=== PATIENT | female | born 1955 | race Caucasian/White ===

== ENCOUNTER → 2016-03-23 | Outpatient (CLI) | payer BC ==
[2016-03-23 11:07] LABS: BASO % 0.6 %; BASO ABS # 0.04 K/uL (0-0.2); COMPLETE YES; EOS % 6.7 %; HEMATOCRIT 36.4 % (37-47); IG% 0.2 %; LYMPH % 36.1 %; LYMPH ABS # 2.27 K/uL (1.2-3.4); MEAN CELL VOLUME 88.3 fL (80-100); MEAN CORPUSCULAR HEMOGLOBIN 30.3 pg (25-34); MEAN CORPUSCULAR HGB CONC 34.3 g/dl (32-36); MEAN PLATELET VOLUME 9.9 fL (7.4-10.4); MONO % 6.5 %; NEUT % 49.9 %; PLATELET COUNT 265 K/uL (130-400); RED BLOOD COUNT 4.12 M/uL (4.2-5.4); WHITE BLOOD COUNT 6.28 K/uL (4.8-10.8)
[2016-03-23 12:10] LABS: ALT/SGPT 22 U/L (12-78); AST/SGOT 15 U/L (15-37); BLOOD UREA NITROGEN 10 mg/dl (7-18); BUN/CREATININE RATIO 16.1 (10-20); CALCIUM 8.9 mg/dl (8.5-10.1); CARBON DIOXIDE 28 mmol/L (21-32); CHLORIDE 105 mmol/L (98-107); CREATININE 0.64 mg/dl (0.60-1.20); GLUCOSE 86 mg/dl (70-99); POTASSIUM 3.9 mmol/L (3.5-5.1); SODIUM 141 mmol/L (136-145)
[2016-03-23 12:19] LABS: ALB/GLOB RATIO 1.2 (0.9-2); ALKALINE PHOSPHATASE 92 U/L (45-117); CHOLESTEROL 179 mg/dl (0-200); CHOLESTEROL/HDL RATIO 2.6; HDL CHOLESTEROL 69 mg/dl; LDL CHOLESTEROL CALCULATED 91 mg/dl; TRIGLYCERIDES 96 mg/dl (0-150); VERY LOW DENSITY LIPOPROT CALC 19 mg/dl
== END | disposition home or self-care (01) ==
LOC: C.LABBC 08:00
PROVIDERS: ATTEND Internal Medicine
DX: E78.5 Hyperlipidemia, unspecified (principal)

== ENCOUNTER → 2017-02-05 | Outpatient (CLI) | payer BC ==
--- NOTE | 2017-02-05 08:56 | DIAGNOSTIC IMAGING REPORT ---
CHEST 2 VIEWS ROUTINE HISTORY: 61 years-old Female R63.4 Weight lossR53.83 [id number] acute weight loss COMPARISON: None available TECHNIQUE: PA and lateral views of the chest FINDINGS: Cardiomediastinal and hilar silhouettes are within normal limits. Mild biapical pleural-parenchymal scarring. No pneumothorax, pleural effusion or overt pulmonary edema. Ill-defined nodular opacities of the lung bases are present suggesting nipple shadows. There is a linear subsegmental 3.2 cm peripheral opacity of the lateral left midlung. Suggested small hiatal hernia. There are degenerative changes of the shoulders and spine. Surgical clips of the upper abdomen suggest prior cholecystectomy. Multilevel endplate spurring of the spine. IMPRESSION: 1. Subsegmental linear 3.2 cm opacity of the lateral left midlung suggest area of pleural-parenchymal scarring. 2. No lobar airspace consolidation to suggest pneumonia. The above report was generated using voice recognition software. It may contain grammatical, syntax or spelling errors. Electronically signed by: Jaime Little M.D. 02/05/2017 8:55 AM Dictated Date/Time: 02/05/2017 8:52 AM
[2017-02-05 09:38] LABS: BASO % 0.4 %; BASO ABS # 0.03 K/uL (0-0.2); COMPLETE YES; EOS % 3.6 %; HEMATOCRIT 33.4 % (37-47); IG% 0.1 %; LYMPH % 24.8 %; LYMPH ABS # 2.01 K/uL (1.2-3.4); MEAN CELL VOLUME 89.3 fL (80-100); MEAN CORPUSCULAR HEMOGLOBIN 29.4 pg (25-34); MEAN CORPUSCULAR HGB CONC 32.9 g/dl (32-36); MEAN PLATELET VOLUME 9.1 fL (7.4-10.4); MONO % 7.5 %; NEUT % 63.6 %; PLATELET COUNT 490 K/uL (130-400); RED BLOOD COUNT 3.74 M/uL (4.2-5.4); WHITE BLOOD COUNT 8.12 K/uL (4.8-10.8)
[2017-02-05 09:57] LABS: ALB/GLOB RATIO 0.8 (0.9-2); ALKALINE PHOSPHATASE 114 U/L (45-117); ALT/SGPT 23 U/L (12-78); AST/SGOT 15 U/L (15-37); BLOOD UREA NITROGEN 8 mg/dl (7-18); BUN/CREATININE RATIO 18.4 (10-20); CARBON DIOXIDE 28 mmol/L (21-32); CHLORIDE 101 mmol/L (98-107); CREATININE 0.46 mg/dl (0.60-1.20); GLUCOSE 81 mg/dl (70-99); POTASSIUM 4.1 mmol/L (3.5-5.1); SODIUM 134 mmol/L (136-145)
[2017-02-05 10:06] LABS: LYME DISEASE AB IGG NEG (NEG)
[2017-02-05 10:07] LABS: LYME DISEASE AB IGM NEG (NEG)
== END | disposition home or self-care (01) ==
LOC: C.RAD1850 08:03
PROVIDERS: ATTEND Physician Assistant
DX: R63.4 Abnormal weight loss (principal); R53.83 Other fatigue

== ENCOUNTER → 2017-02-09 | Outpatient (CLI) | payer BC ==
[2017-02-09 13:52] LABS: FERRITIN 60.9 ng/ml (8.0-388.0)
== END | disposition home or self-care (01) ==
LOC: C.LABBC 09:56
PROVIDERS: ATTEND Physician Assistant
DX: D64.9 Anemia, unspecified (principal)

== ENCOUNTER → 2017-02-10 | Outpatient (CLI) | payer BC | END | disposition home or self-care (01) | LOC: C.LABBC 09:21 | PROVIDERS: ATTEND Internal Medicine | DX: R63.4 Abnormal weight loss (principal); R53.83 Other fatigue; D64.9 Anemia, unspecified; I10 Essential (primary) hypertension; E78.5 Hyperlipidemia, unspecified ==

== ENCOUNTER → 2017-02-12 | Outpatient (CLI) | payer BC ==
--- NOTE | 2017-02-12 13:16 | DIAGNOSTIC IMAGING REPORT ---
CT OF THE CHEST WITHOUT IV CONTRAST CLINICAL HISTORY: Abnormal chest radiograph. COMPARISON STUDY: Chest radiograph February 05, 2017. CT DOSE: 189.56 mGy.cm TECHNIQUE: Axial images of the chest were obtained without IV contrast. Images were reviewed in the axial, sagittal, and coronal planes. IV contrast was not administered for this examination. A dose lowering technique was utilized adhering to the principles of ALARA. FINDINGS: No enlarged axillary, mediastinal or hilar lymph nodes are present. The size of the heart is normal. There is no pericardial effusion. There is a moderate sized hiatal hernia. Central airways are patent. There is no pneumothorax or pleural effusion. Note is made of a 2.7 x 1.4 cm irregular subpleural opacity within the left upper lobe shown on image 122 of 286. There has mild adjacent groundglass opacity. There are also nodular airspace opacities within the right middle lobe and lingula with minimal associated groundglass opacity. There is no cavitation. Bony thorax is unremarkable. Multiple water attenuation hepatic lesions are suboptimally assessed on this exam but likely reflect cysts. There is an intermediate attenuation 2.6 cm left hepatic lobe lesion. There is a 1.1 cm intermediate attenuation segment 5 liver lesion as well. The gallbladder is surgically absent. A splenule is noted. IMPRESSION: 1. Multifocal airspace opacities within the lungs, including a 2.7 x 1.4 cm left upper lobe focus. This corresponds to the abnormality on prior chest radiograph. The findings favor mild multifocal pneumonia. A follow-up chest CT in 2 months to ensure resolution is recommended. 2. Several intermediate attenuation hepatic lesions, the largest of which is a 2.6 cm left hepatic lobe lesion. Although these could reflect hemangiomas, these are indeterminate and nonemergent MRI of the liver is recommended. 3. Moderate sized hiatal hernia. Electronically signed by: Rehan Wilcox M.D. 02/12/2017 1:14 PM Dictated Date/Time: 02/12/2017 12:20 PM
== END | disposition home or self-care (01) ==
LOC: C.CTS 11:49
PROVIDERS: ATTEND Physician Assistant
DX: R93.8 Abnormal findings on diagnostic imaging of other specified body structures (principal); K44.9 Diaphragmatic hernia without obstruction or gangrene

== ENCOUNTER → 2017-02-18 | Outpatient (CLI) | payer BC ==
--- NOTE | 2017-02-18 12:40 | DIAGNOSTIC IMAGING REPORT ---
ABDOMEN AND PELVIS CT WITH ORAL CONTRAST CT DOSE: 316.48 mGy.cm HISTORY: R63.4 Weight lossR53.83 AlxetfbM65.9 Anemia TECHNIQUE: Multiaxial CT images of the abdomen and pelvis were performed following the use of oral contrast. A dose lowering technique was utilized adhering to the principles of ALARA. COMPARISON STUDY: Chest CT 02/12/2017. FINDINGS: Small airspace opacities within the right middle lobe and lingula have slightly improved. No pneumoperitoneum. No pneumatosis. There is again noted a moderate hiatus hernia. However, there appears be abnormal thickening along the left side of the hernia and extending into the cardia. This is concerning for a gastric esophageal mass. There is again noted a 2.7 cm hypodense lesion within the left hepatic dome which does not represent a simple cyst. A few additional hypodense lesions scattered throughout the liver are incompletely characterize on this noncontrast study but are lower in density and therefore favor cysts. Cholecystectomy. The unenhanced spleen, adrenal glands, pancreas are unremarkable. An 11 mm hypodense lesion within the left kidney is also incomplete characterize on this noncontrast study. Mild fullness within the right renal collecting system without arcadio hydronephrosis. No renal or ureteral calculi identified. Normal bladder. No retroperitoneal lymphadenopathy. Tiny fat-containing umbilical hernia. Focal calcification within the right ovary. The uterus and left ovary are unremarkable. Normal bladder. No evidence for bowel obstruction. Colonic diverticulosis. IMPRESSION: 1. Moderate hiatus hernia. This hernia demonstrates an abnormally thickened wall which extends into the gastric cardia. Therefore, this is suspicious for a gastroesophageal mass. Follow-up endoscopy is recommended for further evaluation. 2. There is also an indeterminate 2.7 cm hypodense lesion within the left hepatic dome which does not represent a simple cyst. Follow-up contrast-enhanced MRI should be performed to exclude the possibility of a metastatic focus. 3. Slight improvement in the bibasilar airspace opacities consistent with a resolving pneumonia. 4. Mild fullness within the right renal collecting system without arcdaio hydronephrosis. No renal or ureteral calculi identified. 5. Colonic diverticulosis. 6. These findings were called to the referring physician's office following dictation. Electronically signed by: Yanick Andrade M.D. 02/18/2017 12:39 PM Dictated Date/Time: 02/18/2017 12:25 PM
== END | disposition home or self-care (01) ==
LOC: C.CTS 11:40
PROVIDERS: ATTEND Internal Medicine
DX: D64.9 Anemia, unspecified (principal); R53.83 Other fatigue; R63.4 Abnormal weight loss; J18.9 Pneumonia, unspecified organism; K44.9 Diaphragmatic hernia without obstruction or gangrene; K76.9 Liver disease, unspecified; K57.30 Diverticulosis of large intestine without perforation or abscess without bleeding

== ENCOUNTER → 2017-02-26 | Outpatient (CLI) | payer BC ==
[~2017-02-26] MED LIST: GADAVIST IV PRN
--- NOTE | 2017-02-26 13:48 | DIAGNOSTIC IMAGING REPORT ---
LIVER COMBO CLINICAL HISTORY: 61 years-old Female presenting with K76.89 Liver lesion, left lobesee CT scan done 02/18. Indeterminate liver lesion in the left hepatic dome, concern for metastatic focus. TECHNIQUE: Multisequence, multiplanar MR imaging of the abdomen was performed before and after the administration of intravenous contrast. IV contrast: 10 mL of Eovist. COMPARISON: CT from 02/18/2017. FINDINGS: Localizer images: Unremarkable. Lung bases: Lungs and pleural spaces clear. Normal heart size. No pericardial or pleural effusion. Liver: Normal morphology. Focal round 2.4 cm intrinsically T1 hyperintense, mildly T2 hyperintense intense lesion in the segment 2/4A. This lesion does not demonstrate measurable enhancement on subtracted postcontrast imaging and does not retain contrast on hepatobiliary specific phase. This lesion does not contain fat. Several mildly T2 hyperintense enhancing lesions suggestive of hemangiomas. Multiple additional well-defined T2 hyperintense nonenhancing lesions consistent with hepatic cysts or hamartomas. Hepatic fat fraction is 0.4%, which is normal. Patent hepatic vasculature. Biliary: Mild biliary ductal prominence likely a reservoir effect in the post cholecystectomy state. Conventional intrahepatic biliary bifurcation. Gallbladder surgically absent. Pancreas: Pancreas divisum. Spleen: Normal. Adrenal glands: Normal. Kidneys and ureters: Well-defined T2 hyperintense nonenhancing lesion in the left kidney consistent with simple cyst. No hydronephrosis. Bowel: Small hiatal hernia. Bowel otherwise normal. No bowel obstruction. Peritoneal cavity: No free fluid or intraperitoneal gas. Lymph nodes: No enlarged lymph nodes in the abdomen. Vasculature: Aorta and IVC patent and normal in caliber. Abdominal wall: Normal. Musculoskeletal: Normal. IMPRESSION: 1. 2.4 cm lesion in the left hepatic lobe. This is suboptimally evaluated with a hepatocellular specific contrast agent. Further evaluation with Gadavist, an extracellular contrast agent is recommended for more thorough evaluation. Intrinsic T1 hyperintensity of the lesion is unique and can be seen in the setting of an adenoma, dysplastic nodule, hematoma, proteinaceous material, or melanoma metastasis. The lack of apparent enhancement favors a benign etiology. This should be followed. Electronically signed by: Orion Sousa M.D. 02/26/2017 1:47 PM Dictated Date/Time: 02/26/2017 1:26 PM
== END | disposition home or self-care (01) ==
LOC: C.MRIBC 12:03
PROVIDERS: ATTEND Family Medicine Adult Medicine
DX: K76.89 Other specified diseases of liver (principal)

== ENCOUNTER → 2017-03-03 | Outpatient (CLI) | payer BC ==
--- NOTE | 2017-03-03 12:23 | DIAGNOSTIC IMAGING REPORT ---
LIVER MRI HISTORY: K76.89 Liver lesion, left lobePer prior MRI report: "2.4 cm lesi TECHNIQUE: Multiplanar multisequence MRI of the liver was performed both before and after the intravenous ministration of 6 cc of Gadavist contrast. COMPARISON STUDY: Liver MRI 02/26/2017. FINDINGS: There is again noted a round 2.4 cm T1 hyperintense, T2 iso to hypointense lesion within the left hepatic lobe. This does not demonstrate definite enhancement on the subtraction postcontrast images. Out of phase imaging does not demonstrate microscopic fat within the lesion. No associated restricted diffusion within this lesion. Multiple additional scattered hepatic cysts are again noted. There is a 1 cm cyst within the left kidney. The right kidney, pancreas, spleen, and adrenal glands are unremarkable. Prior cholecystectomy. Mild thickening at the gastroesophageal junction has improved. A hiatus hernia is partially visualized. IMPRESSION: 1. No change in the 2.4 cm T1 hyperintense lesion within the left hepatic lobe. This does not demonstrate definite enhancement. Therefore, this favors a proteinaceous/hemorrhagic cyst. An additional 6 month MRI follow-up is recommended to ensure stability and ensure the less likely possibility of a hepatic mass. 2. Additional scattered hepatic cysts. 3. Mild thickening at the gastroesophageal junction has improved. 4. The hiatus hernia is only partially visualized. Electronically signed by: Yanick Andrade M.D. 03/03/2017 12:21 PM Dictated Date/Time: 03/03/2017 12:07 PM
== END | disposition home or self-care (01) ==
LOC: C.MRI 10:47
PROVIDERS: ATTEND Family Medicine Adult Medicine
DX: K76.89 Other specified diseases of liver (principal)

== ENCOUNTER → 2017-03-04 | Outpatient (CLI) | payer BC ==
--- NOTE | 2017-03-04 09:39 | DIAGNOSTIC IMAGING REPORT ---
TWO VIEW CHEST CLINICAL HISTORY: Liver lesion. FINDINGS: PA and lateral chest radiographs are compared to study dated 02/05/2017 and correlated with chest CT dated 02/12/2017. The cardiomediastinal silhouette is unremarkable. There is mild atherosclerotic calcification of the thoracic aorta. Chronic interstitial thickening is unchanged. Linear atelectasis versus scarring is present in the left upper lobe. This has decreased in size from 02/05/2017. No airspace consolidation is seen typical for pneumonia and there is no pleural effusion. There is no pneumothorax. The skeletal structures are osteopenic. The bony thorax appears intact. Degenerative change is noted in the thoracic spine. Cholecystectomy clips are noted. IMPRESSION: 1. Linear atelectasis versus scarring is seen in the left upper lung. This has decreased in size from 02/05/2017. Precautionary CT follow-up in an additional 1-2 months is recommended for reassessment. 2. There is no airspace consolidation typical for pneumonia or pleural effusion. Electronically signed by: Francois Jacobs M.D. 03/04/2017 9:38 AM Dictated Date/Time: 03/04/2017 9:32 AM
== END | disposition home or self-care (01) ==
LOC: C.RADBC 09:22
PROVIDERS: ATTEND Internal Medicine
DX: K76.89 Other specified diseases of liver (principal)

== ENCOUNTER → 2017-03-29 | Outpatient (CLI) | payer BC ==
--- NOTE | 2017-03-29 12:09 | DIAGNOSTIC IMAGING REPORT ---
(CHEST) THORAX WITHOUT CT DOSE: 184.26 mGy.cm HISTORY: Pneumonia J18.9 Pneumonia6 WEEK F/U FOR [id number] TECHNIQUE: Multiaxial CT images of the chest were performed without contrast. A dose lowering technique was utilized adhering to the principles of ALARA. COMPARISON: 02/12/2017 FINDINGS: Mildly improved exam. The parenchymal infiltrate left upper lobe anterior to the left major fissure is similar in overall geographic extent is considerably diminished in overall density. The additional micronodules throughout both hemithoraces are stable. No evidence for new interval or progressive process. Minimal atelectatic change of the lingula is stable. No significant mediastinal or hilar adenopathy The appearance liver is unaltered. Prior cholecystectomy. IMPRESSION: 1. Mildly improved exam with the parenchymal infiltrative process primarily in the left upper lobe region moderately improved. 2. Residual infiltrative change as well as subtle micronodularity bilaterally 3. A six-month follow-up CT study is suggested. The above report was generated using voice recognition software. It may contain grammatical, syntax or spelling errors. Electronically signed by: Peyman Alcocer M.D. 03/29/2017 12:08 PM Dictated Date/Time: 03/29/2017 12:02 PM
== END | disposition home or self-care (01) ==
LOC: C.CTS 11:35
PROVIDERS: ATTEND Physician Assistant
DX: J18.9 Pneumonia, unspecified organism (principal); R91.8 Other nonspecific abnormal finding of lung field

== ENCOUNTER → 2017-04-20 | Outpatient (CLI) | payer BC ==
[2017-04-20 17:06] LABS: BASO % 0.6 %; BASO ABS # 0.05 K/uL (0-0.2); EOS % 9.9 %; EOS ABS # 0.83 K/uL (0-0.5); HEMATOCRIT 36.6 % (37-47); HEMOGLOBIN 12.3 g/dL (12.0-16.0); IG# 0.02 K/uL (0.00-0.02); LYMPH % 34.5 %; LYMPH ABS # 2.89 K/uL (1.2-3.4); MEAN CELL VOLUME 88.2 fL (80-100); MEAN CORPUSCULAR HEMOGLOBIN 29.6 pg (25-34); MEAN CORPUSCULAR HGB CONC 33.6 g/dl (32-36); MEAN PLATELET VOLUME 9.6 fL (7.4-10.4); NEUT % 48.8 %; NEUT ABS # 4.09 K/uL (1.4-6.5); PLATELET COUNT 292 K/uL (130-400); RED CELL DISTRIBUTION WIDTH CV 13.7 % (11.5-14.5); RED CELL DISTRIBUTION WIDTH SD 44.2 fL (36.4-46.3); WHITE BLOOD COUNT 8.38 K/uL (4.8-10.8)
== END | disposition home or self-care (01) ==
LOC: C.LABBC 12:44
PROVIDERS: ATTEND Internal Medicine
DX: D64.9 Anemia, unspecified (principal)

== ENCOUNTER → 2017-07-09 | Outpatient (CLI) | payer BC ==
[2017-07-09 14:02] LABS: BLOOD UREA NITROGEN 13 mg/dl (7-18); CREATININE 0.56 mg/dl (0.60-1.20)
== END | disposition home or self-care (01) ==
LOC: C.LABBC 11:38
PROVIDERS: ATTEND Family Medicine Adult Medicine
DX: Z00.00 Encounter for general adult medical examination without abnormal findings (principal)

== ENCOUNTER → 2017-07-12 | Outpatient (CLI) | payer BC ==
--- NOTE | 2017-07-12 09:57 | DIAGNOSTIC IMAGING REPORT ---
MRI OF THE ABDOMEN COMBO CLINICAL HISTORY: Follow-up liver lesion. COMPARISON STUDY: MRI of the liver dated 03/03/2017. Abdominal CT dated 02/10/2017. TECHNIQUE: MRI of the abdomen is performed transverse T1 and T2-weighted sequences in the axial and coronal planes. Contrast enhanced sequences were acquired following the IV administration of 6 cc of Gadavist. Diffusion weighted sequences and subtraction imaging were utilized. MRCP images are created and assessed with 3-D reformats. FINDINGS: Lower chest: No pleural effusion is identified. The heart is normal in size. A moderate hiatal hernia is observed. Liver: The liver is normal in size, contour, and signal intensity. No intrahepatic biliary ductal dilatation is seen. The hepatic veins and portal veins are patent. There is unchanged appearance of a 2.4 cm T1 hyperintense, T2 isointense lesion in the left hepatic lobe. This is seen on axial postcontrast image #32 of 112. There is no abnormal enhancement within this lesion. No enhancing hepatic lesion is identified. There are numerous small simple cysts which measure up to 1.4 cm. Gallbladder and MRCP: The gallbladder is surgically absent. There is no intrahepatic biliary ductal dilatation. The common bile duct measures up to 1.0 cm. There are no filling defects identified to suggest choledocholithiasis. Pancreas divisum is incidentally noted. Spleen: Normal in size and signal intensity. Pancreas: Unremarkable. Adrenal glands: Unremarkable. Kidneys: The kidneys are normal in size and without hydronephrosis. The kidneys enhance and excrete symmetrically. A 12 mm cyst is seen in the lower pole of the left kidney. Abdominal aorta: Normal in course and caliber. Bowel: Visualized portions of the small bowel and colon show no evidence of obstruction. Peritoneum: There is no abdominal ascites. There is a fat-containing umbilical hernia. Lymphadenopathy: None. Skeletal structures: Visualized skeletal structures times are normal marrow signal intensity. IMPRESSION: 1. There is unchanged appearance of a 2.4 cm lesion in the left hepatic lobe. No enhancement is identified within this lesion and the signal characteristics remains most typical for a complex/hemorrhagic cyst. An additional follow-up examination in one years time is recommended. 2. Additional simple hepatic cysts are also unchanged. 3. No enhancing hepatic lesion is seen. 4. Moderate hiatal hernia. 5. Pancreas divisum is incidentally noted. 6. Additional findings as above. Electronically signed by: Francois Jacobs M.D. 07/12/2017 9:56 AM Dictated Date/Time: 07/12/2017 9:36 AM
== END | disposition home or self-care (01) ==
LOC: C.MRIBC 07:47
PROVIDERS: ATTEND Family Medicine Adult Medicine
DX: K76.89 Other specified diseases of liver (principal); K44.9 Diaphragmatic hernia without obstruction or gangrene

== ENCOUNTER 2023-05-06 05:11 | Observation (INO) ==
--- NOTE | 2023-04-19 10:25 | PAT Medication Instructions ---
Medication Instructions Date of Service April 19, 2023 Home Medications magnesium oxide 500 mg capsule 500 mg PO QAM vitamin B complex 1 tab PO DAILY cetirizine 10 mg capsule (Zyrtec) 10 mg PO QAM cholecalciferol (vitamin D3) 50 mcg (2,000 unit) capsule 2,000 units PO QAM desvenlafaxine succinate 100 mg tablet,extended release 24 hr (Pristiq) 100 mg PO QPM famotidine 20 mg tablet 20 mg PO BID latanoprost 0.005 % eye drops 1 drp ophthalmic (eye) HS losartan 100 mg tablet 100 mg PO QPM sumatriptan succinate 100 mg tablet 100 mg PO QAM PRN Continue as directed sumatriptan succinate 100 mg tablet 100 mg PO QAM PRN(if needed) DO NOT take the morning of surgery magnesium oxide 500 mg capsule 500 mg PO QAM vitamin B complex 1 tab PO DAILY cetirizine 10 mg capsule (Zyrtec) 10 mg PO QAM cholecalciferol (vitamin D3) 50 mcg (2,000 unit) capsule 2,000 units PO QAM Take morning of surgery With a small sip of water, OTHERWISE NOTHING TO EAT OR DRINK AFTER MIDNIGHT: famotidine 20 mg tablet 20 mg PO BID Take evening before surgery desvenlafaxine succinate 100 mg tablet,extended release 24 hr (Pristiq) 100 mg PO QPM famotidine 20 mg tablet 20 mg PO BID latanoprost 0.005 % eye drops 1 drp ophthalmic (eye) HS losartan 100 mg tablet 100 mg PO QPM Other Notes If you have any questions please call us at [phone] or [phone] or [phone] or [phone]
--- NOTE | 2023-04-21 09:33 | Anesthesiology Consultation ---
Date of Service April 21, 2023 Assessment & Plan (1) Encounter for pre-operative examination: - Infectious disease screening: Per assessment on 04/21/23: No known infectious disease contacts or current infectious disease symptoms. No noted recent Covid positive test result. - Outpatient joint assessment: Pt currently scheduled for inpatient pathway. If surgeon requests review for outpatient joint pathway, patient is an acceptable candidate for outpatient joint program from anesthesia standpoint pending surgeon's office assessment that patient is motivated, has good support and completes [facility] preop requirements. - *Hx of Difficulty with neuraxial placement with remote child delivery per patient* - Patient acceptable risk for surgery pending surgeon-ordered PCP preop evaluation ([facility], appt 04/25). Chart Review Chart Review: Patient seen in Pre Admission Testing History Surgery Operation Date: 05/06/23 07:00 Proposed Procedures p Left Total Knee Arthroplasty - Orion Guerra MD Height/Weight Height: 5 ft 4 in Weight: 63.7 kg Allergies Allergy/AdvReac Type Severity Reaction Status Date / Time bupropion [From Wellbutrin] AdvReac Mild Anxiety Verified 04/14/23 13:45 metoclopramide [From Reglan] AdvReac Mild Anxious Verified 04/19/23 12:13 prochlorperazine AdvReac Mild Anxious Verified 04/19/23 12:13 [From Compazine] Medications Home Medications Medication Instructions Recorded Confirmed Last Taken magnesium oxide 500 mg capsule 500 mg PO QAM 11/23/17 04/14/23 12/14/17 vitamin B complex 1 tab PO DAILY 11/23/17 04/14/23 12/14/17 cetirizine 10 mg capsule (Zyrtec) 10 mg PO QAM 10/27/18 04/14/23 Unknown cholecalciferol (vitamin D3) 50 2,000 units PO QAM 10/27/18 04/14/23 Unknown mcg (2,000 unit) capsule desvenlafaxine succinate 100 mg 100 mg PO QPM 04/14/23 04/14/23 Unknown tablet,extended release 24 hr (Pristiq) famotidine 20 mg tablet 20 mg PO BID 04/14/23 04/14/23 Unknown latanoprost 0.005 % eye drops 1 drp ophthalmic (eye) HS 04/14/23 04/14/23 Unknown losartan 100 mg tablet 100 mg PO QPM 04/14/23 04/14/23 Unknown sumatriptan succinate 100 mg tablet 100 mg PO QAM PRN migraines 04/14/23 04/14/23 Unknown Past Medical History Medical History Anemia Anxiety Attention deficit disorder (ADD) Depression GERD (gastroesophageal reflux disease) Glaucoma Hiatal hernia History of COVID-19 11/2022 (per [facility] PCP notes) > resolved Hypertension Migraine Osteoarthritis Osteopenia Pulmonary nodules/lesions, multiple Exercise / Class Metabolic Activity II 4-5 Yardwork/Stairs/Walk up hill Past Family History Family History Son Family history of reaction to anesthesia nausea Daughter Family history of reaction to anesthesia nausea Sister Alcohol abuse Depression Gallbladder disease Hypertension Breast cancer Mother Depression Gallbladder disease Hypertension Hypercholesterolemia Stroke Brother Depression Hypertension Father Cardiac disorder Myocardial infarction Son Epilepsy Denies family history of Ovarian cancer Prostate cancer Diabetes Lung cancer Colorectal cancer Past Surgical History Surgical History History of arthroscopy Right knee History of bilateral tubal ligation History of cataract surgery History of cholecystectomy History of colonoscopy History of dilatation and curettage History of esophagogastroduodenoscopy (EGD) History of nasal septoplasty History of tooth extraction Hx of cervical discectomy Nausea and vomiting after administration of anesthetic agent with general Past Anesthesia History No Family Hx of Anesthesia Complications (except sister PONV) and Other (Difficulty with neuraxial placement with remote child delivery per patient) History of PONV History of PONV (with General anesthesia) and Hx of Motion Sickness Social History Smoking Status: Never smoker Do You Dip or Chew Tobacco: No Hx Alcohol Use: Yes Alcohol type: beer and wine alcohol intake frequency: a few times a month Hx Substance Use: No substance use type: does not use Review of Systems Patient denies chest pain, shortness of breath, dyspnea on exertion, fever, chills, cough, wheezing, palpitations. Physical Exam Vital Signs BP 135/79 P 72 TEMP 98.2 SP02 96%RA RESP 16 Physical Full cervical extension range of motion. Full TMJ range of motion. TMD 3 finger breaths Mallampati Score 2 Dentition: intact, + crown Lungs: clear throughout to auscultation Cardiac: regular rate and rhythm, no murmurs noted Spine: normal Carotid arteries: negative bruit Extremities: no LE edema Lab Results Anesthesia Preop Results Results Anesthesia Widget: WBC 5.82 K/ul (4.8-10.8) 03/22/23 Hgb 11.3 g/dl (12.0-16.0) L 03/22/23 Hct 35.6 % (37.0-47.0) L 03/22/23 Plt 349 K/uL (130-400) 03/22/23 Na 137 mmol/L (136-145) 03/22/23 K 4.6 mmol/L (3.5-5.1) 03/22/23 Cl 105 mmol/L (98-107) 03/22/23 CO2 28 mmol/L (21-32) 03/22/23 BUN 10 mg/dl (6-23) 03/22/23 Creat 0.47 mg/dl (0.6-1.2) L 03/22/23 Glucose Level 81 mg/dl (70-99(Fasting)) 03/22/23 PT 10.5 Seconds (9.0-12.0) 04/21/23 PTT 29 Seconds (21-31) 04/21/23 INR 1.0 (0.9-1.1) 04/21/23 Urine Color Yellow 04/21/23 Urine Appearance Clear (Clear) 04/21/23 Urine pH 6.0 (4.5-7.5) 04/21/23 Urine Specific [place] 1.010 (1.000-1.030) 04/21/23 Urine Protein Negative (Negative) 04/21/23 Urine Glucose (UA) Negative (Negative) 04/21/23 Urine Ketones Negative (Negative) 04/21/23 Urine Blood Negative (Negative) 04/21/23 Urine Nitrite Negative (Negative) 04/21/23 Urine Bilirubin Negative (Negative) 04/21/23 Urine Urobilinogen Negative (Negative) 04/21/23 Urine Leukocyte Esterase Negative (Negative) 04/21/23 Blood Type A Positive 04/21/23 Antibody Screen NEGATIVE 04/21/23 Direct Antiglob Test Negative (Negative) 02/23/23 Testing Electrocardiogram Date: 04/21/23 NSR at 73bpm. "Normal ECG"
--- NOTE | 2023-04-21 15:16 | History & Physical Report ---
Date of Service April 21, 2023 Assessment & Plan (1) Osteoarthritis of left knee: Plan: PRE-OP Diagnosis: Left knee osteoarthritis Planned Procedure: Left total knee arthroplasty Plan: Patient is scheduled to undergo this procedure at the [facility] with Dr. Guerra on April. Risks and complications of the procedure such as: Infection, bleeding, pain, scarring, nerve blood vessel damage, weakness, wound problems, stiffness, incomplete relief of symptoms, hardware failure, hardware loosening, wear, fracture, tendon or ligament injury, blood clots, embolism, cardiac, stroke and were explained to the patient at her visit today and informed consent for the procedure was obtained. Patient also understands risks of proceeding with surgical intervention during the COVID-19 pandemic. Currently she is asymptomat ic and states that she has not been in contact with anyone positive for the virus recently. We will need to obtain preoperative medical clearance from the patient's primary care provider and campus recruiting coordinator (obtained). Patient is scheduled to meet with anesthesia at the hospital later this morning. Patient CBC and complete metabolic panel are up-to-date. She states she is scheduled to have a repeat CBC ordered by her campus recruiting coordinator 1 week prior to surgery to be sure that her hemoglobin level is appropriate. Will meet with anesthesia later this morning patient will obtain a PT/INR, blood type and screen, urinalysis, urine culture and sensitivity, EKG and a nasal culture for MRSA. During today's visit we reviewed the total knee packet. I provided the patient with paperwork to obtain obtaining a handicap placard for her vehicle. I provided her with information about lectures offered by [facility] in regards to joint replacement surgery. I provided her with an order to obtain a walker. I recommended that she purchase a shower chair and raised toilet seat. We discussed discharge planning from the hospital. Patient states she will most likely do in-home physical therapy for the first 2 weeks before transitioning to outpatient physical therapy. I advised the patient that she will be provided with a prescription for narcotic pain medication for postoperative pain control. We will have her on Xarelto daily for the first 30 days postoperatively for blood clot prevention. Patient verbalized understanding of all information provided during today's visit. Patient is scheduled to see me for her 2-week postoperative follow-up on May 18. This chart was completed utilizing dragon dictation voice recognition software. Grammatical errors, random word insertions, pronoun errors, and in complete sentences are an occasional consequence of the system. Any questions or concerns about the content, text, or information contained within the body of this dictation should be addressed directly to the physician for clarification. History of Present Illness Chief Complaint: Chief Complaint: Left knee pain Primary Care Provider: Ivelisse Hobbs DO History of Present Illness (including history relevant to procedure): This 67-year-old female presents to the clinic today for her preoperative history and physical. Patient states that back in September she accidentally stepped into a groundhog hole and twisted her knee. She states that since that time she has had significant medial sided knee pain. She is had corticosteroid injections, a PRP injection but has not received any significant relief. She is unable to use nonsteroidal agents due to her anemia. Patient states that her range of motion seems to be decreasing over time. She is electing to proceed with surgical intervention for her degenerative joint disease. Review Of Systems: A 12 point review of systems is performed is unremarkable except for those things stated in the HPI and past medical history. Past Medical History: Problems: Arthritis of left knee Anemia OA (osteoarthritis) Hypertension Cervical stenosis of spine Hemorrhoids Anxiety/depression Migraine headaches Hiatal hernia Procedure History Procedure Procedure Date Comments Knee - right meniscus Cholecystectomy Capsule endoscopy 04/08/2023 - Normal exam. F/U with referring provider EGD - esophagogastroduodenoscopy 03/23/2023 - Continue the medication Famotidine which I sent to your pharmacy. For ongoing prescriptions please obtain from your PCP or make an appointment in our GI office. - A) Duodenum, biopsy:No significant pathology. B) Gastric polyp, biopsy:Gastric fundic mucosa with congestion and small lymphoid aggregate, negative for neoplasia. C) Gastric body erosion, biopsy:Congestion and epithelial repair compatible with healing erosive gastritis. COMMENT:Histologic features of Helicobacter pylori gastritis not identified. D) Gastric antrum, biopsy:Mild congestion and foveolar hyperplasia compatible with reactive gastropathy.COMMENT:Histologic features of Helicobacter pylori gastritis not identified. - - Z-line regular, 35 cm from the incisors. - Normal esophagus. - 7 cm hiatal hernia. - Small erosion in gastric body where hiatal hernia crosses the diaphragm. Biopsied. - Normal antrum. Biopsied. - Two gastric polyps. Biopsied one.. - Normal second portion of the duodenum. Biopsied. - The examination was otherwise normal. Colonoscopy 12/30/2022 - - Repeat colonoscopy in 5 years for surveillance. - - Small area of inflammation noted in the distal rectum at anal verge. This was characterized by edema, erythema and mild erosions. -Diverticulosis of the the left colon. - The examination was otherwise normal on direct and retroflexion views. - No specimens collected. DESTROY INTERNAL HEMORRHOIDS 2019 ANESTH TUBAL LIGATION 1983 Allergies and Sensitivities: Compazine(increased anxiety) Reglan(increase anxiety) Current Home Meds: (Last Updated 04/21 08:17) SUMAtriptan (Imitrex 100 mg oral tablet) 100 mg PO ONCE PRN: as needed for migraine headache acetaminophen (Tylenol 325 mg oral tablet) 650 mg PO q4h PRN: as needed for pain cetirizine (ZyrTEC 5 mg oral tablet) 5 mg PO Daily PRN: as needed for allergy symptoms cholecalciferol (Vitamin D3 1000 intl units oral capsule) 1,000 Int_Unit PO Daily desvenlafaxine (Pristiq 100 mg oral tablet, extended release) 100 mg PO Daily famotidine (Pepcid 20 mg oral tablet) 20 mg PO bid latanoprost ophthalmic (latanoprost 0.005% ophthalmic solution) 1 drop both eyes Daily losartan (losartan 100 mg oral tablet) 100 mg PO Daily multivitamin (B-Complex 50 oral tablet) 1 tab PO Daily unknown medication (Magnesium) 1 tab po daily Allergies Allergy/AdvReac Type Severity Reaction Status Date / Time bupropion [From Wellbutrin] AdvReac Mild Anxiety Verified 04/14/23 13:45 metoclopramide [From Reglan] AdvReac Mild Anxious Verified 04/19/23 12:13 prochlorperazine AdvReac Mild Anxious Verified 04/19/23 12:13 [From Compazine] Home Medications Medication Instructions Recorded Confirmed Type magnesium oxide 500 mg capsule 500 mg PO QAM 11/23/17 04/14/23 History vitamin B complex 1 tab PO DAILY 11/23/17 04/14/23 History cetirizine 10 mg capsule (Zyrtec) 10 mg PO QAM 10/27/18 04/14/23 History cholecalciferol (vitamin D3) 50 2,000 units PO QAM 10/27/18 04/14/23 History mcg (2,000 unit) capsule desvenlafaxine succinate 100 mg 100 mg PO QPM 04/14/23 04/14/23 History tablet,extended release 24 hr (Pristiq) famotidine 20 mg tablet 20 mg PO BID 04/14/23 04/14/23 History latanoprost 0.005 % eye drops 1 drp ophthalmic (eye) HS 04/14/23 04/14/23 History losartan 100 mg tablet 100 mg PO QPM 04/14/23 04/14/23 History sumatriptan succinate 100 mg tablet 100 mg PO QAM PRN migraines 04/14/23 04/14/23 History Past Med/Surg History Medical History Anemia Hypertension History of COVID-19 11/2022 ([facility]) > resolved Pulmonary nodules/lesions, multiple Osteopenia Hiatal hernia Osteoarthritis GERD (gastroesophageal reflux disease) Glaucoma Attention deficit disorder (ADD) Anxiety Depression Migraine Surgical History Hx of cervical discectomy History of cataract surgery Nausea and vomiting after administration of anesthetic agent with general History of dilatation and curettage History of arthroscopy Right knee History of bilateral tubal ligation History of esophagogastroduodenoscopy (EGD) History of colonoscopy History of cholecystectomy History of tooth extraction History of nasal septoplasty Family History Son Family history of reaction to anesthesia nausea Daughter Family history of reaction to anesthesia nausea Sister Alcohol abuse Depression Gallbladder disease Hypertension Breast cancer Mother Depression Gallbladder disease Hypertension Hypercholesterolemia Stroke Brother Depression Hypertension Father Cardiac disorder Myocardial infarction Son Epilepsy Denies family history of Ovarian cancer Prostate cancer Diabetes Lung cancer Colorectal cancer Social History Smoking Status: Never smoker Second Hand Exposure: No; Do You Dip or Chew Tobacco: No; Hx Alcohol Use: Yes Alcohol type: beer and wine Alcohol Intake Frequency: Monthly or Less Alcohol Intake Frequency Comment: social Hx Substance Use: No Preferred Language: Pashto Communication Ability: Effective Visual Impairment: Limited Hearing Ability: Use of Hearing Aid Product Management Consultant Required: No Beliefs That Will Affect Care: None marital status: Current Living Situation: Alone current occupational status: employed and retired current occupation: [employer] few days a week How many Children do You have: 2 Feels Safe at Home: Yes Childhood Exposure to Second-Hand Smoke: Yes (mother smoked growing up) caffeine: Yes (coffee ) Dental Care, Regularly: Yes Physical Activity Frequency: 3-4 Times per Week 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 Extraocular movements are intact Throat: Posterior oropharynx is clear with absence of edema, erythema or exudate Cardiac: Regular rate and rhythm with no murmurs or gallops appreciated Lungs: Clear to auscultation throughout with no wheezing, rales or rhonchi Abdomen: Nonobese, nondistended, nontender with NABS Extremities: Left knee; range of motion is from 2 degrees of extension to 125 degrees of flexion. Patient experiences medial joint line tenderness when the knee was palpated in the flexed position. I was able to manipulate her patella with palpable crepitation. Patient had no laxity with varus or valgus stressing. AP drawer sign and Ann test were negative. Patient was neurovascularly intact in the left lower extremity and had no visible malalignment. Neuro: Cranial nerves II through XII are intact no motor or sensory deficit Skin: Normal in appearance with no open skin areas or discharge Results & Data Diagnostic Findings Studies (relevant to the procedure): X-ray imaginviews and long leg alignment film of theleft kneeobtained today and personally interpreted by me show irregularity of the medial femoral condyle and tricompartmental osteophyte formation. Lateral > medial joint space narrowing. Incidental finding of [id number] arthritis of the right knee. No fractures. Long leg alignment film shows anatomic Varus alignment. MRI of the left knee obtained on 11/24/2022 reviewed by me show tear in medial and lateral meniscus, marrow edema in the lateral tibial plateau, and arthritis in the medial and patellar compartments. Extensive edema in the medial femoral condyle and SONK lesion. Complex tear throughout the entire substance of the meniscus.
[2023-05-06] MEDS: ACETAMINOPHEN 500 MG TAB PO SCH ×2 (05:50→13:18)
[2023-05-06] MEDS: dexAMETHasone**PF** 10 MG/ML VIAL IV SCH (05:50)
[2023-05-06] MEDS: FAMOTIDINE 20 MG TAB PO SCH ×2 (05:50→11:10)
[2023-05-06] MEDS: traMADol HCL 50 MG TABLET PO SCH (05:51)
[2023-05-06] MEDS: LR 500ML BOLUS, THEN 15ML/HR IV SCH (05:57)
[2023-05-06] MEDS: Scopolamine 1 MG TDSY TD SCH (05:57)
[2023-05-06] MEDS: LR 60ML/HR IV SCH (05:57)
[2023-05-06] MEDS ORDERED: ROPIVACAINE 0.5% 5 MG/ML 30 ML VIAL ONE (06:25)
[2023-05-06] MEDS ORDERED: BUPIVACAINE 0.5 % 5 MG/1 ML PF 10ML VIAL ONE (06:25)
[2023-05-06] MEDS ORDERED: MIDAZOLAM HCL 1 MG/ML 2ML VIAL ONE (06:34)
[2023-05-06] MEDS ORDERED: fentaNYL citrate PF 100 MCG/2 ML VIAL ONE (06:35)
[2023-05-06] MEDS: TRANEXAMIC ACID 1,000 MG **IV Pre-op IV SCH (06:37)
--- NOTE | 2023-05-06 06:37 | History & Physical Bridge Note ---
Date of Service May 06, 2023 History & Physical Bridge Note I have examined the patient, reviewed the History & Physical and in the interval since the performance of the History & Physical I have noted the following changes of clinical significance: no changes noted
[2023-05-06] MEDS ORDERED: fentaNYL citrate PF 100 MCG/2 ML VIAL IV PRN (06:38)
[2023-05-06] MEDS ORDERED: ATROPINE SULFATE 0.1 MG/ML 10ML SYR IV PRN (06:38)
[2023-05-06] MEDS ORDERED: ONDANSETRON INJ 2 MG/ML 2 ML VIAL IV PRN (06:38)
[2023-05-06] MEDS ORDERED: ePHEDrine sulfate 50 MG/ML AMP IV PRN (06:38)
[2023-05-06] MEDS: ceFAZolin 2000MG 2,000 MG/15 ML SYR IV SCH ×2 (06:57→15:04)
[2023-05-06] MEDS ORDERED: PROPOFOL IV EMULSION 10 MG/ML 20 ML VIAL IV ONE (07:49)
[2023-05-06] MEDS ORDERED: ONDANSETRON INJ 2 MG/ML 2 ML VIAL ONE (07:49)
[2023-05-06] MEDS ORDERED: LIDOCAINE 2% 2 ML VIAL/AMP(20MG/ML) INFIL ONE (07:49)
[2023-05-06] MEDS: ORTHO JOINT ANESTHETIC ONE (07:58)
[2023-05-06] MEDS: ROPIVACAINE 0.5% HCL/PF 246 MG, Ketorolac (*for OR use only*) 30 MG, EPINEPHrine 30MG/3... INFIL SCH (07:58)
[2023-05-06] MEDS: ROPIV 0.5% 246mg, Ketorolac 30mg, EPINEPHrine 0.5mg in NSS INFIL SCH (07:58)
[2023-05-06] MEDS: TRANEXAMIC ACID 1,000 MG **IV Intra-op IV SCH (08:06)
--- NOTE | 2023-05-06 08:37 | Operative Report ---
Post Operative Report Pre & Post Diagnosis Operation Date: 05/06/23 07:00 Pre-Op Diagnosis: Left Knee Osteoarthritis Post-Op Diagnosis: Left Knee Osteoarthritis I identified the patient and participated in the time-out.: Yes Procedure Operation Date: 05/06/23 07:00 Actual Procedures p Left Total Knee Arthroplasty(Left) - Orion Guerra MD Surgeon Orion Guerra MD Geomorphology Teacher GIOVANY Morgan PA-C. No resident or fellow was available to assist. Estimated Blood Loss 100 Findings Consistent with Post-Op Diagnosis Fluids 1200 cc crystalloid Specimens left knee bone and soft tissue contents Anesthesia Type Spinal MAC Complications none Disposition Disposition: Recovery Room Indications 67-year-old female with left knee arthritis refractory to conservative management. X-rays demonstrate joint space narrowing, irregularity of the subchondral bone particularly in the medial side of the knee, and tricompartmental osteophyte formation. I had a long discussion with her about t he risks and benefits of surgery, alternatives to surgery, and expected outcomes. After reviewing all these she elected to proceed with surgery. All questions were answered. Informed consent was signed. Description of Procedure Patient was identified in the preoperative holding area where the surgical site, left knee, was marked. Spinal anesthetic was placed by anesthesia. Patient was brought back to the operating room, placed on the operating room table, and IV sedation was administered. A bump was placed underneath the ipsilateral hip. All bony prominences were padded. Perioperative antibiotics and tranexamic acid were administered. Exam under anesthesia was performed. This demonstrated the patient to have a 8 degree flexion contracture. She flexed up to 110 degrees. Stable to varus and valgus stressing at 30 degrees. The surgical site was prepped and draped in the normal sterile fashion. Prior to incision a multidisciplinary timeout was called. All in the room were in agreement. We began by exsanguinating the limb with an Esmarch bandage. Tourniquet was inflated to 250 mmHg. A 12 cm long incision was made over the anterior aspect of the knee. I dissected through the subcutaneous tissues to the level of the fascia. Full-thickness flaps were raised above the fascia. A median parapatellar arthrotomy was made. Half the fat pad was excised. A medial release was performed with Bovie electrocautery on the proximal tibia. Synovitis in the knee and suprapatellar pouch was removed. The patella was then everted and held with 2 towel clips. The thickness of the patella was measured at 21 mm. Patellar resection was performed. Caliper showed the patella thickness now to be 13 mm. A size 35 trial was placed and had a great fit. The 3 drill holes were placed then the trial button was placed. The patellar thickness was now 22 mm which I was very happy with. The patellar trial was then removed, and the knee was flexed up. Retractors were placed to protect the MCL and LCL. Osteophytes were removed from the femoral condyles and intercondylar notch. The ACL and PCL were excised. Intramedullary drill guide was drilled into the femur. Distal femoral cutting guide was placed set at 5 degrees of valgus to resect 10 mm off the distal femur. Distal femoral resection was made without difficulty. The tibia was then exposed. The lateral meniscus was sharply excised. The tibial cutting jig was positioned in line with the tibial shaft in the coronal plane and with 3 degrees of posterior slope in the sagittal plane to resect for 4 mm off the more involved compartment. The jig was then pinned in position and the tibial cut was made. We then brought the knee into full extension. Lamina spreaders were placed. The medial meniscus was excised. The extension block was then placed for 5 mm thickness poly. This gave us full extension and excellent stability to varus and valgus stress. Next the extension block was removed, the knee was flexed up, collateral ligaments were protected, and the epicondylar axis and Whitesides line were marked out on the distal femoral cut. Femoral sizing guide was placed. External rotation was set at 5 degrees so that the posterior cut would be parallel with the epicondylar axis and perpendicular with Whitesides line. The patient sized to a size 5 femur. 2 pins were then placed through the jig into the distal femur. The jig was removed and the appropriately sized 4-in-1 cutting jig was placed over the pins, then fixated to the bone using threaded, headed pins. We confirmed that we would not notch the femur with our anterior cut. Our 4 cuts were then made. The cutting jig was removed. The flexion block was then placed with the knee held at 90 degrees. There was excellent stability to varus and valgus at 90 degrees with no gapping medially or laterally. Next the box cutting jig was placed on the distal femur. The box cut was made and the femoral trial was impacted into position. Lug holes were drilled in the distal femur. We then reexposed the tibia. The tibia was sized to a 4 for a fixed-bearing component. The tibial tray with a 5 mm thickness polyethylene liner was placed on the cut tibial surface and the knee was brought through a full range of motion. There was excellent stability to varus valgus stress throughout a full range of motion, which was approximately 0-125 degrees. Bovie electrocautery was used to ольга the tibia at the site where the tibial tray rested in full extension. We then flexed up the knee, removed the polyethylene liner, and pinned the tibial tray into position to match the cautery ольга. The intramedullary drill followed by the keel punch were used to prepare the tibia. Next the trial components were removed. I then injected the posterior capsule and periosteum with the periarticular injection cocktail. The bone cuts were then irrigated and dried while the cement was mixed on the back table. The femoral component was cemented on first. Excess cement was removed. A lap sponge was placed over the femoral component for protection, then the tibia was subluxated anteriorly. The all polyethylene tibial component was then cemented in place. Again excess cement was removed. The knee was brought into full extension and held there until the cement cured. The patella was cemented and clamped. Dilute Betadine solution was then allowed to soak in the knee while the cement cured. Once the cement was fully cured, the knee was irrigated out, the tourniquet was let down and meticulous hemostasis was ensured. The knee was brought through a full range of motion. I was were very happy with the patella tracking and the stability. We then began to close. Interrupted 0 Vicryl suture was used to repair the patellar retinaculum in [id number] fashion. The quadriceps and patellar tendons were run with #1 Vicryl. The deep dermal layer was closed with interrupted 2-0 Vicryl. Dermabond and Zipline was used for the skin, followed by a Silverlon dressing. A compressive Thomas wrap was placed and the knee was placed into a knee immobilizer. Patient's sedation was lifted and was transferred to recovery room in stable condition. Summary of implants: Depuy Attune Posterior Stabilized Cemented Femur, size 5 left Attune All-polyethylene tibial component, posterior stabilized 5 mm thickness, size 4 Attune patella medialized dome, size 35 2 batches of simplex high viscosity bone cement Postoperative course: Patient will be admitted to the floor for pain control and monitoring. Weightbearing as tolerated with a walker with no knee range of motion for 48 hours. Aspirin for DVT prophylaxis. I attest to the content of the Intraoperative Record and any orders documented therein. Any exceptions are noted below.
[2023-05-06] MEDS ORDERED: bisacodyL 10 MG SUPP PR PRN (08:41)
[2023-05-06] MEDS ORDERED: MAGNESIUM HYDROXIDE SUSP 30 ML UDC PO PRN (08:41)
[2023-05-06] MEDS ORDERED: diphenhydrAMINE 50 MG/ML VIAL IV PRN (08:41)
[2023-05-06] MEDS ORDERED: NALOXONE HCL 0.4 MG/1 ML VIAL/CARP IV PRN (08:41)
[2023-05-06] MEDS ORDERED: ALUMINUM/MAGNESIUM SUSP 30 ML UDC PO PRN (08:41)
[2023-05-06] MEDS ORDERED: METOCLOPRAMIDE HCL INJ 5 MG/ML 2 ML VIAL IV PRN (08:41)
--- NOTE | 2023-05-06 08:41 | Operative Report ---
Post Operative Report Pre & Post Diagnosis Operation Date: 05/06/23 07:00 Pre-Op Diagnosis: Left Knee Osteoarthritis Post-Op Diagnosis: Left Knee Osteoarthritis I identified the patient and participated in the time-out.: Yes Procedure Operation Date: 05/06/23 07:00 Actual Procedures p Left Total Knee Arthroplasty(Left) - Orion Guerra MD Surgeon Orion Guerra MD Appetizer Packer GIOVANY Morgan PA-C. No resident or fellow was available to assist. Estimated Blood Loss 100 Findings Consistent with Post-Op Diagnosis Specimens knee bone and soft tissue Description of Procedure I was present during the entire case assisting with positioning, prepping, draping, wound retraction, wound closure, and dressing application. No fellow present. Please see Dr. Guerra procedure note for specifics of the case. I attest to the content of the Intraoperative Record and any orders documented therein. Any exceptions are noted below.
[2023-05-06] MEDS ORDERED: SUMAtriptan succinate 100 MG TAB PO PRN (08:45)
--- NOTE | 2023-05-06 09:26 | XRay Report ---
LEFT KNEE 2 VIEWS History: Left total knee arthroplasty. Degenerative arthritis. Postop. FINDINGS: The patient is status post a left total knee arthroplasty. The hardware is intact. No fract ure or dislocation. IMPRESSION: Left total knee arthroplasty. No evidence for hardware complication. ACT 112: Negative or not required by law. Electronically signed by: Yanick Andrade M.D. 05/06/2023 9:24 AM
--- NOTE | 2023-05-06 10:03 | Anesthesiology Progress Note ---
Date of Service May 06, 2023 Anesthesia Post Procedure Vital Signs Vital Signs: Temp Pulse Resp BP Pulse Ox O2 Del Method 05/06/23 09:40 75 12 130/78 95 Room Air 05/06/23 09:30 99.3 F 82 19 128/78 96 Room Air 05/06/23 09:20 85 19 115/56 L 96 Room Air 05/06/23 09:10 85 19 112/77 95 Room Air 05/06/23 09:00 75 14 133/69 93 Room Air 05/06/23 08:50 75 14 126/67 93 Room Air 05/06/23 08:41 97.3 F L 88 18 134/72 93 Room Air 05/06/23 05:39 98.1 F 77 20 150/76 H 97 Room Air Transfer of Care Handoff Completed per policy Notes Mental Status: alert / awake / arousable and participated in evaluation Patient Amnestic to Procedure: Yes Nausea / Vomiting: adequately controlled Pain: adequately controlled Airway Patency, RR, SpO2: stable & adequate BP & HR: stable & adequate Hydration State: stable & adequate Neuraxial Anesthesia: was administered and sensory block is resolving Anesthetic Complications: no major complications apparent and Pt Satisfied with anesthetic care
[2023-05-06] MEDS: KETOROLAC TROMETHAMINE 15 MG/ML VIAL IV SCH (11:05)
[2023-05-06] MEDS: SODIUM CHLORIDE 0.9% 1,000 ML IV SCH (11:06)
[2023-05-06] MEDS: CHOLECALCIFEROL 25 MCG (1000 UNITS) TAB PO SCH (11:09)
[2023-05-06] MEDS: CETIRIZINE HCL 10 MG TABLET PO SCH (11:10)
[2023-05-06] MEDS: FERROUS SULFATE 325 MG TAB PO SCH (11:10)
[2023-05-06] MEDS: MULTIVITAMIN TAB PO SCH (11:11)
[2023-05-06] MEDS: DOCUSATE SODIUM 100 MG CAP PO SCH (11:11)
[2023-05-06] MEDS: VITAMIN B COMPLEX TAB PO SCH (11:11)
[2023-05-06] MEDS: oxyCODONE HCL IR 5 MG TAB (IMMEDIATE RELEASE) PO PRN (13:54)
[2023-05-06] MEDS: Scopolamine CHECK PATCH PLACEMENT SCH (17:20)
[2023-05-06] MEDS: LOSARTAN POTASSIUM 50 MG TAB PO SCH (21:08)
[2023-05-06] MEDS: SENNA 8.6 MG TAB PO SCH (21:08)
[2023-05-06] MEDS: ONDANSETRON INJ 2 MG/ML 2 ML VIAL IV PRN (21:13)
[2023-05-06] MEDS: HYDROmorphone INJ 0.5 MG/0.5 ML SYR IV PRN (21:13)
[2023-05-06] MEDS: LATANOPROST 0.005% OP SOLN 2.5 ML BTL OP SCH (21:17)
[2023-05-06] MEDS ORDERED: Nursing to Pharmacy Communication SCH (21:30)
[2023-05-07 06:57] LABS: Hematocrit (blood only) 26.4 % (37.0-47.0); Hemoglobin 8.8 g/dl (12.0-16.0); Mean Corpuscular Hemoglobin 28.3 pg (25.0-34.0); Mean Corpuscular Hgb Conc 33.3 g/dL (32.0-36.0); Mean Corpuscular Volume 84.9 fL (80.0-100.0); Mean Platelet Volume 9.6 fL (9.4-12.4); Platelet Count 225 K/uL (130-400); RDW Coefficient of Variation 16.8 % (11.5-14.5); RDW Standard Deviation 51.9 fL (36.4-46.3); Red Blood Count 3.11 M/uL (4.20-5.40); White Blood Count 9.11 K/ul (4.8-10.8)
[2023-05-07 07:31] LABS: BUN Creatinine Ratio 21.8 (10-20); Calcium 8.5 mg/dl (8.6-10.3); Creatinine Clr Calc Pharmacy 81.6 ml/min; Est GFR (African American) 110.9 ml/min; Est GFR (Non-African American) 95.7 ml/min; Potassium 4.1 mmol/L (3.5-5.1)
[2023-05-07] MEDS: MAGNESIUM OXIDE 400 MG TAB PO SCH (09:02)
[2023-05-07] MEDS: ASPIRIN 81 MG ECTAB PO SCH (09:02)
[2023-05-07] MEDS: CeleBREX 200 MG CAP PO SCH (09:03)
[2023-05-07] MEDS: dexAMETHasone 4 MG TAB PO SCH (09:28)
--- NOTE | 2023-05-07 09:46 | Orthopedic Progress Note ---
Date of Service May 07, 2023 Assessment & Plan (1) S/P total knee arthroplasty: Plan: PT/OT Weightbearing as tolerated with walker assistance and immobilizer for first 48 hours postop DVT prophylaxis with aspirin and TORIBIO stockings Pain controlled p.o. medication Keep Silverlon dressing in place until follow-up Ice with easy wrap Plan is to discharge home today with in-home physical therapy for the first 2 weeks Follow-up at [facility] orthopedics as previously scheduled With questions contact our clinic at [phone] Admission and Anticipated Discharge Date Admission Date: May 06, 2023 Subjective This 67-year-old female is day 1 status post left total knee arthroplasty. She states she is doing fairly well. She states that she completed physical therapy this morning without issue, however when she sat up quickly from a lying position she did get a little lightheaded. She states that last night she needed IV Dilaudid to control her pain. She is hoping to be discharged home later today. She states that she is going to do in-home physical therapy for the first 2 weeks postoperatively. Currently she denies chest pain, shortness of breath, fever, chills, sweats, numbness or tingling in her left lower extremity. She also denies nausea, vomiting, diarrhea or difficulty voiding. Review of Systems Review of Systems: All systems reviewed & are unremarkable except as noted in Subjective Physical Exam Physical Exam: Left knee: Outer dressing was removed. Silverlon is clean dry and intact and left in place. Active knee range of motion is from 0 degrees of extension to about 65 degrees of flexion. Patient has mild edema noted over the anterior aspect of the knee and tenderness over the quad with a tourniquet was placed. She is able to perform an active straight leg raise test. She is able to actively dorsi and plantarflex her foot. Her quad strength is 3+ out of 5. She is neurovascularly intact in the left lower extremity. Results & Data Vital Signs (Past 12 Hours) Vital Signs Temp Pulse Pulse Resp BP BP Pulse Ox 05/07/23 07:17 36.7 C 81 16 106/53 L 92 05/07/23 02:36 36.6 C 90 18 103/61 93 O2 Del Method 05/07/23 07:17 Room Air 05/07/23 02:36 Room Air Diagnostic Findings Laboratory Results WBC 9.11 K/ul (4.8-10.8) 05/07/23 06:14 RBC 3.11 M/uL (4.20-5.40) L 05/07/23 06:14 Hgb 8.8 g/dl (12.0-16.0) L 05/07/23 06:14 Hct 26.4 % (37.0-47.0) L 05/07/23 06:14 MCV 84.9 fL (80.0-100.0) 05/07/23 06:14 MCH 28.3 pg (25.0-34.0) 05/07/23 06:14 MCHC 33.3 g/dL (32.0-36.0) 05/07/23 06:14 RDW Std Deviation 51.9 fL (36.4-46.3) H 05/07/23 06:14 RDW Coeff of Blanca 16.8 % (11.5-14.5) H 05/07/23 06:14 Plt Count 225 K/uL (130-400) 05/07/23 06:14 MPV 9.6 fL (9.4-12.4) 05/07/23 06:14 Sodium 138 mmol/L (136-145) 05/07/23 06:14 Potassium 4.1 mmol/L (3.5-5.1) 05/07/23 06:14 Chloride 106 mmol/L (98-107) 05/07/23 06:14 Carbon Dioxide 28 mmol/L (21-32) 05/07/23 06:14 Anion Gap 4 (3-11) 05/07/23 06:14 BUN 12 mg/dl (6-23) 05/07/23 06:14 Creatinine 0.55 mg/dl (0.6-1.2) L 05/07/23 06:14 Est Cr Clr Drug Dosing 81.6 ml/min 05/07/23 06:14 Est GFR ( Amer) 110.9 ml/min 05/07/23 06:14 Est GFR (Non-Af Amer) 95.7 ml/min 05/07/23 06:14 BUN/Creatinine Ratio 21.8 (10-20) H 05/07/23 06:14 Glucose 103 mg/dl (70-99(Fasting)) H 05/07/23 06:14 Calcium 8.5 mg/dl (8.6-10.3) L 05/07/23 06:14 Impressions Knee X-Ray 05/06/23 08:41 LEFT KNEE 2 VIEWS History: Left total knee arthroplasty. Degenerative arthritis. Postop. FINDINGS: The patient is status post a left total knee arthroplasty. The hardware is intact. No fracture or dislocation. IMPRESSION: Left total knee arthroplasty. No evidence for hardware complication. ACT 112: Negative or not required by law. Electronically signed by: Yanick Andrade M.D. 05/06/2023 9:24 AM
--- NOTE | 2023-05-07 09:55 | Discharge Summary ---
Date of Service May 07, 2023 Admission HPI Per Admitting Provider History of Present Illness (including history relevant to procedure): This 67-year-old female presents to the clinic today for her preoperative history and physical. Patient states that back in September she accidentally stepped into a groundhog hole and twisted her knee. She states that since that time she has had significant medial sided knee pain. She is had corticosteroid injections, a PRP injection but has not received any significant relief. She is unable to use nonsteroidal agents due to her anemia. Patient states that her range of motion seems to be decreasing over time. She is electing to proceed with surgical intervention for her degenerative joint disease. Review Of Systems: A 12 point review of systems is performed is unremarkable except for those things stated in the HPI and past medical history. Past Medical History: Problems: Arthritis of left knee Anemia OA (osteoarthritis) Hypertension Cervical stenosis of spine Hemorrhoids Anxiety/depression Migraine headaches Hiatal hernia Procedure History Procedure Procedure Date Comments Knee - right meniscus Cholecystectomy Capsule endoscopy 04/08/2023 - Normal exam. F/U with referring provider EGD - esophagogastroduodenoscopy 03/23/2023 - Continue the medication Famotidine which I sent to your pharmacy. For ongoing prescriptions please obtain from your PCP or make an appointment in our GI office. - A) Duodenum, biopsy:No significant pathology. B) Gastric polyp, biopsy:Gastric fundic mucosa with congestion and small lymphoid aggregate, negative for neoplasia. C) Gastric body erosion, biopsy:Congestion and epit helial repair compatible with healing erosive gastritis. COMMENT:Histologic features of Helicobacter pylori gastritis not identified. D) Gastric antrum, biopsy:Mild congestion and foveolar hyperplasia compatible with reactive gastropathy.COMMENT:Histologic features of Helicobacter pylori gastritis not identified. - - Z-line regular, 35 cm from the incisors. - Normal esophagus. - 7 cm hiatal hernia. - Small erosion in gastric body where hiatal hernia crosses the diaphragm. Biopsied. - Normal antrum. Biopsied. - Two gastric polyps. Biopsied one.. - Normal second portion of the duodenum. Biopsied. - The examination was otherwise normal. Colonoscopy 12/30/2022 - - Repeat colonoscopy in 5 years for surveillance. - - Small area of inflammation noted in the distal rectum at anal verge. This was characterized by edema, erythema and mild erosions. -Diverticulosis of the the left colon. - The examination was otherwise normal on direct and retroflexion views. - No specimens collected. DESTROY INTERNAL HEMORRHOIDS 2019 ANESTH TUBAL LIGATION 1984 Allergies and Sensitivities: Compazine(increased anxiety) Reglan(increase anxiety) Current Home Meds: (Last Updated 04/21 08:17) SUMAtriptan (Imitrex 100 mg oral tablet) 100 mg PO ONCE PRN: as needed for migraine headache acetaminophen (Tylenol 325 mg oral tablet) 650 mg PO q4h PRN: as needed for pain cetirizine (ZyrTEC 5 mg oral tablet) 5 mg PO Daily PRN: as needed for allergy symptoms cholecalciferol (Vitamin D3 1000 intl units oral capsule) 1,000 Int_Unit PO Daily desvenlafaxine (Pristiq 100 mg oral tablet, extended release) 100 mg PO Daily famotidine (Pepcid 20 mg oral tablet) 20 mg PO bid latanoprost ophthalmic (latanoprost 0.005% ophthalmic solution) 1 drop both eyes Daily losartan (losartan 100 mg oral tablet) 100 mg PO Daily multivitamin (B-Complex 50 oral tablet) 1 tab PO Daily unknown medication (Magnesium) 1 tab po daily Admission Exam Per Admitting Provider Physical Exam: (relevant to the procedure, including heart and lung evaluation) General: Alert and oriented x 3 with proper grooming and hygiene Eyes: Pupils are equal and reactive to light with accommodation. Extraocular movements are intact Throat: Posterior oropharynx is clear with absence of edema, erythema or exudate Cardiac: Regular rate and rhythm with no murmurs or gallops appreciated Lungs: Clear to auscultation throughout with no wheezing, rales or rhonchi Abdomen: Nonobese, nondistended, nontender with NABS Extremities: Left knee; range of motion is from 2 degrees of extension to 125 degrees of flexion. Patient experiences medial joint line tenderness when the knee was palpated in the flexed position. I was able to manipulate her patella with palpable crepitation. Patient had no laxity with varus or valgus stressing. AP drawer sign and Ann test were negative. Patient was neurovascularly intact in the left lower extremity and had no visible malalignment. Neuro: Cranial nerves II through XII are intact no motor or sensory deficit Skin: Normal in appearance with no open skin areas or discharge Principal Diagnosis Left knee osteoarthritis Discharge Exam Left knee: Outer dressing was removed. Silverlon is clean dry and intact and left in place. Active knee range of motion is from 0 degrees of extension to about 65 degrees of flexion. Patient has mild edema noted over the anterior aspect of the knee and tenderness over the quad with a tourniquet was placed. She is able to perform an active straight leg raise test. She is able to actively dorsi and plantarflex her foot. Her quad strength is 3+ out of 5. She is neurovascularly intact in the left lower extremity. Discharge Data Allergies Allergy/AdvReac Type Severity Reaction Status Date / Time bupropion [From Wellbutrin] AdvReac Mild Anxiety Verified 05/06/23 05:36 metoclopramide [From Reglan] AdvReac Mild Anxious Verified 05/06/23 05:36 prochlorperazine AdvReac Mild Anxious Verified 05/06/23 05:36 [From Compazine] Procedures Performed Operation Date: 05/06/23 07:00 Actual Procedures p Left Total Knee Arthroplasty(Left) - Orion Guerra MD Ordered Studies 05/06/23 05:00 US - OR guided needle placemen Routine Hospital Course (1) S/P total knee arthroplasty: Essentially patient had an uneventful overnight stay except for an increase in pain and some slight lightheadedness when she sat up quickly from her bed this morning. She did well with physical therapy. She is hoping to be discharged home later today with in-home physical therapy for the first 2 weeks postoperatively. PT/OT Weightbearing as tolerated with walker assistance and immobilizer for first 48 hours postop DVT prophylaxis with aspirin and TORIBIO stockings Pain controlled p.o. medication Keep Silverlon dressing in place until follow-up Ice with easy wrap Plan is to discharge home today with in-home physical therapy for the first 2 weeks Follow-up at [facility] orthopedics as previously scheduled With questions contact our clinic at [phone] Total Time Total Time Spent Total Time Spent (In Minutes): 25 mins Discharge Plan Discharge Items Patient Disposition: Home - Home Health Services Reason For Visit: Left Knee Osteoarthritis Discharge Diagnosis: Left knee osteoarthritis Activity: As commented below Lifting: None Bathing: Keep incision dry Bathing Comment: May shower tomorrow Sexual Activity: Wait until after follow-up appointment Exercise/Sports: Wait until after follow-up appointment Driving/Machine Use: No driving until cleared by human factors specialist Weightbearing: Left weightbearing Weightbearing Comment: as tolerated with walker and immobilizer x 48 hrs Non-emergency contact: Surgeon Call non-emergency contact if: you have any medication questions, your pain is not controlled, your temperature is above 101.5, your wound has increased drainage and your wound pain has increased Follow-up/Referrals: Ivelisse Hobbs DO [Primary Care Provider] - Diet: Regular Addtl Attending Provider Instructions: Post-operative Instructions Dear Patient and Family/Friends, Before you are discharged from the hospital, it is important to know what to expect when you get home after surgery. To that end, we have created this sheet of discharge instructions which covers many commonly asked questions. Make sure you go through this sheet in its entirety with your nurse before you are discharged. Please note that we will go over the specifics of your surgery and recovery when you return for your first post-operative visit. Sincerely, Dr. Guerra Medications 1. Oxycodone 5 mg: Take 1-2 tabs every 4-6 hours as needed for postoperative pain control. This will be sent to your pharmacy 2. Diclofenac sodium 75 mg: Take 1 tab twice daily for the first 30 days postoperatively for postoperative pain and inflammation relief. This will also be sent to your pharmacy with 1 refill 3. Aspirin 81 mg: Take 1 tab twice daily for the first 30 days postoperatively for blood clot prevention. Please purchase this medication. 4. Extra strength Tylenol 500 mg: Take 2 tabs every 6-8 hours as needed for additional pain relief. Please purchase the medication. Pain Expect to be in a fair amount of pain after surgery. Remember, our goal is not to eliminate your pain, but to make it tolerable. It is a good idea to stay ahead of your pain by taking the medications you were prescribed once you get home. Typically, the pain starts improving 3-7 days after surgery. You should start weaning off the narcotic pain medication (oxycodone, hydrocodone, hydromorphone, morphine) as soon as your pain improves. Please call our office if your pain is not adequately controlled. Ice Ice your operative site at least 5 times a day for 15-30 minutes at a time. Make sure you have a thin cloth between the ice or cooling unit and your skin to prevent correia bite. This is especially important if you received a nerve block. Continue icing your operative site for the first 5-7 days after surgery, then as needed. Diet/Nausea/Vomiting Start by drinking clear liquids and eating crackers. If you can tolerate this, then you may resume your normal diet. If you feel nauseated or vomit, take Zofran/ondansetron (if prescribed). Please call our office if you have intractable nausea or vomiting, or, if after hours, you may go to the Emergency Room for help. Constipation Constipation is a common side effect of narcotic pain medication. If you have not had a bowel movement within 2 days after surgery, we recommend purchasing an over the counter laxative such as Milk of Magnesia, Dulcolax, or Miralax from a local pharmacy, and taking it as instructed. Call our clinic if any questions. Slings and Braces If you were placed in a sling or brace, it must be worn at all times, including sleep. You may remove your sling or brace for physical therapy, home exercises, and showering. The length of time you will be in your brace and range of motion restrictions depends on what surgery you had; these details will be reviewed at your first post-operative appointment. Nerve block The anesthesia team sometimes places a nerve block to help with post-operative pain control. This results in significant numbness and inability to move the extremity. The nerve block usually wears off in 8-12 hours, but sometimes can last up to 24 hours. Please call our office if you are still unable to move your extremity after 24 hours, unless you received a pain pump to take home. Nerve blocks typically wear off quickly, so start taking pain medication as soon as you start feeling soreness near your surgical site. Weight bearing and Range of Motion. Do not bear any weight through your operative extremity immediately after surgery. If you had upper extremity surgery, do not lift anything with that arm. If you are in a knee brace, keep it locked in place until your follow-up. We will discuss your weight bearing, range of motion, and lifting restrictions in detail at your first post-operative appointment. Continuous Passive Motion (CPM) Machine If you were prescribed a CPM machine, it will start after your first post- operative appointment, at which time we will give you instructions on the range of motion settings and duration of treatment Physical therapy You will be given a prescription for physical therapy or occupational therapy at your first post-operative appointment. Typically, patients start therapy within 1 week of surgery Wound care and showering We will inspect your wound at your first post-operative visit, and may do a dressing change at that time. Most patients will be in a water-proof dressing that is removed 14 days after surgery. It is normal to see some dried blood on the dressing. Do not remove your dressing, paper strips or sutures yourself unless you are given permission. Showering is allowed the day after surgery. Do not scrub or remove any dressings. The wound should not be submerged underwater (i.e. in a bathtub or pool) until 4 weeks after surgery TORIBIO stockings If you were given white stockings, these are to be worn at all times except to shower (on both legs) for the first 2 weeks after surgery. Driving You may not drive while taking narcotic pain medication or while in a cast, splint, sling or brace. You, the patient, need to make the final determination about when you are safe to drive, however, the earliest you may consider driving after surgery is below: Hand/Wrist/Elbow Surgery: 3 days Shoulder Surgery: 2 weeks Hip,/Knee/Ankle Surgery: 4 weeks Fracture repair: 6 weeks Return to Work Your return to work depends on what surgery was done and what type of work you do. Please bring any paperwork your employer needs completed to your first post-operative visit. Also, bring a description of your job duties, as this helps us to understand what risks you may face at work. Travel Avoid long distance travel (greater than 1 hour) in airplanes and cars for the first 6 weeks after surgery. If you must travel, you need to have a Doppler ultrasound done before you travel to rule out a blood clot in your legs. Follow-up You should have a follow-up appointment already scheduled 1-2 days after surgery. If not, please contact our office to make this appointment before you leave the hospital. When to call the office It is normal to have swelling and bruising in the limb that was operated on. This will improve with time. It is also normal to have fevers for the first 2 days after surgery. Reasons you should call your doctor include: Uncontrolled pain; Nausea, vomiting, or constipation that does not improve with medication; Fevers over 101.5, chills, sweats; Drainage or bleeding from the wound; Foul odor; Spreading areas of redness; Any other concerns Pending Studies at Discharge: No Stand-Alone Forms: My [facility] Medications and DC Order Prescriptions: New acetaminophen [Tylenol Extra Strength] 500 mg Tablet 1,000 mg PO Q8 30 Days Qty: 180 0RF aspirin 81 mg Tablet,Delayed Release (Dr/Ec) 81 mg PO BID 30 Days Qty: 60 0RF oxycodone 5 mg Tablet 5 - 10 mg PO Q4H MDD Ongoing treatment (max 6 tabs) PRN (Reason: Postoperative pain control) Qty: 28 0RF diclofenac sodium 75 mg tablet,delayed release (DR/EC) 75 mg PO BID 30 Days Qty: 60 1RF Continued Zyrtec 10 mg capsule 10 mg PO QAM cholecalciferol (vitamin D3) 2,000 unit capsule 2,000 units PO QAM ferrous sulfate [Feosol] 325 mg (65 mg iron) tablet 325 mg PO DAILY vitamin B complex Tablet 1 tab PO DAILY magnesium oxide 500 mg Capsule 500 mg PO QAM latanoprost 0.005 % Drops 1 drp OPHTHALMIC (EYE) HS famotidine 20 mg Tablet 20 mg PO BID sumatriptan succinate 100 mg tablet 100 mg PO QAM PRN (Reason: migraines) Rx Instructions: TAKE 1 TABLET BY MOUTH DIRECTED NEEDED FOR MIGRAINE HEADACHE losartan 100 mg tablet 100 mg PO QPM desvenlafaxine succinate [Pristiq] 100 mg tablet extended release 24 hr 100 mg PO QPM Admission Data Admit Date/Time: 05/06/23 08:41 Attending Provider: Orion Guerra Admit Provider: Orion Guerra Primary Care Provider: Ivelisse Hobbs Other Providers: [facility],Home Healthcare; [facility],Referral [place]
== END 2023-05-07 11:59 | disposition home health service (06) ==
LOC: 3N 05:11 → ASU 05:11